=== PATIENT | male | born 1985 | race Caucasian/White ===

== ENCOUNTER 2017-04-28 14:51 | Emergency (ER) | payer MEDICAID, OTHER ==
[~2017-04-28] VITALS: Ht 188 cm; Wt 249.5 kg
[2017-04-29 01:30] VITALS: BP 172/95
== END 2017-04-29 02:49 | disposition home or self-care (01) ==
LOC: ER 14:51
DX: M79.89 Other specified soft tissue disorders (principal); M25.562 Pain in left knee
CPT/HCPCS: 73562; 93971